=== PATIENT | male | born 1975 | race Caucasian/White ===

== ENCOUNTER 2017-07-24 11:59 | Emergency (ER) | payer SELFPAY ==
[~2017-07-24] VITALS: Ht 177.8 cm; Wt 80.0 kg
[2017-07-24 14:02] LABS: BASOPHILS % 1.2 % (0.0-2.0); EOSINOPHILS % 5.3 % (0.0-5.0); HEMATOCRIT. 36.5 % (42.0-52.0); HEMOGLOBIN. 11.7 g/dL (14.0-18.0); LYMPHOCYTES % 15.2 % (20.0-50.0); MEAN CORPUSCULAR VOLUME 93.3 fL (80.0-94.0); MEAN PLATELET VOLUME 7.8 fl (7.4-10.4); NEUTROPHILS % 64.3 % (40.0-76.0); PLATELET 282 x1000/uL (130-400); RED BLOOD CELL COUNT 3.91 mill/uL (4.7-6.1); RED CELL DISTRIBUTION WIDTH 16.1 % (11.6-14.6)
[2017-07-24 14:35] VITALS: BP 114/68
== END 2017-07-24 14:36 | disposition home or self-care (01) ==
LOC: ER 13:03
DX: R55 Syncope and collapse (principal); I13.0 Hypertensive heart and chronic kidney disease with heart failure and stage 1 through stage 4 chronic kidney disease, or unspecified chronic kidney disease; E11.22 Type 2 diabetes mellitus with diabetic chronic kidney disease; N18.4 Chronic kidney disease, stage 4 (severe); I50.9 Heart failure, unspecified; R53.1 Weakness
CPT/HCPCS: 36415; 80048; 85025; 99284

== ENCOUNTER 2017-09-07 13:02 | Inpatient (IN) | payer MEDICARE, MEDICAID ==
[~2017-09-07] VITALS: Ht 177.8 cm; Wt 81.6 kg
[2017-09-07] VITALS (33 sets, daily range): BP systolic 64–142; BP diastolic 42–74
[~2017-09-07 13:02] MED LIST: HEPARIN SODIUM 1,000 UNIT/1ML VIAL IV ONE; NICARDIPINE 100MCG/ML 10ML VIAL (CATH LAB) IV ONE; NITROGLYCERIN 50MCG/ML 10ML VIAL (CATH LAB) IV ONE; PHENYLEPHRINE 100MCG/ML 10ML VIAL (CATH LAB) IV ONE
[2017-09-07] MEDS ORDERED: SODIUM CHLORIDE 0.9% 1,000 ML IV ONE (13:19)
[2017-09-07] MEDS ORDERED: ONDANSETRON HCL 4MG/2ML VIAL IV STA (13:19)
[2017-09-07] MEDS ORDERED: MORPHINE SULFATE 4 MG/ML CPJ (NOT FOR IM USE) IV STA (13:19)
[2017-09-07] MEDS ORDERED: ASPIRIN 81MG TABLET PO STA (13:19)
[2017-09-07] MEDS ORDERED: IODIXANOL 320MG/ML 100 ML BOTTLE IV ONE ×2 (13:44→14:46)
[2017-09-07] MEDS ORDERED: LIDOCAINE HCL 1% 20ML VIAL (Pyxis) INJ ONE ×2 (13:44→14:32)
[2017-09-07 13:53] LABS: BASOPHILS % 0.5 % (0.0-2.0); EOSINOPHILS % 1.6 % (0.0-5.0); HEMATOCRIT. 32.2 % (42.0-52.0); HEMOGLOBIN. 10.5 g/dL (14.0-18.0); LYMPHOCYTES % 12.4 % (20.0-50.0); MEAN CORPUSCULAR HEMOGLOBIN 29.6 pg (28.0-32.0); MEAN CORPUSCULAR VOLUME 90.5 fL (80.0-94.0); MEAN PLATELET VOLUME 8.4 fl (7.4-10.4); MONOCYTES % 9.1 % (2.0-8.0); NEUTROPHILS % 76.4 % (40.0-76.0); PLATELET 248 x1000/uL (130-400); RED BLOOD CELL COUNT 3.56 mill/uL (4.7-6.1); RED CELL DISTRIBUTION WIDTH 15.1 % (11.6-14.6)
[2017-09-07 14:01] LABS: PARTIAL THROMBOPLASTIN TIME 30.1 sec (23.4-31.0); PROTHROMBIN TIME 10.7 sec (9.4-11.6)
[2017-09-07] MEDS ORDERED: IOVERSOL 240MG/ML 100ML BOTTLE IV ONE (14:09)
[2017-09-07] MEDS ORDERED: DOPAMINE 400MG PREMIX 250 ML IV ONE (14:10)
[2017-09-07 14:14] LABS: CHLORIDE 98 mEq/L (98-107)
[2017-09-07] MEDS ORDERED: ATROPINE SULFATE 1MG/10ML SYR IV PRN (15:30)
[2017-09-07] MEDS ORDERED: ACETAMINOPHEN 325MG TABLET PO PRN (15:30)
[2017-09-07] MEDS ORDERED: ASPIRIN 325MG TABLET ONE (15:39)
[2017-09-07] MEDS ORDERED: CLOPIDOGREL 75MG TABLET ONE (15:40)
[2017-09-07] MEDS: PHENYLEPHRINE 10 MG in DEXTROSE 5% WATER 250 ML IV PRN (16:30)
[2017-09-07] MEDS ORDERED: DEXTROSE 50% WATER 50ML SYRINGE IV PRN (17:00)
[2017-09-07] MEDS ORDERED: MORPHINE SULFATE 2 MG/ML CPJ (NOT FOR IM USE) IV ONE (17:28)
[2017-09-07] MEDS ORDERED: HEPARIN 25,000 UNITS PREMIX 500 ML IV SCH (17:30)
[2017-09-07] MEDS ORDERED: HEPARIN BOLUS PRN aPTT 30-44 IV (17:30)
[2017-09-07] MEDS ORDERED: HEPARIN BOLUS PRN aPTT <30 IV (17:30)
[2017-09-07] MEDS ORDERED: MORPHINE SULFATE 2 MG/ML CPJ (NOT FOR IM USE) IV SCH ×2 (18:30)
[2017-09-07] MEDS: ONDANSETRON HCL 4MG/2ML VIAL IV PRN (19:49)
[2017-09-07] MEDS: MORPHINE SULFATE 4 MG/ML CPJ (NOT FOR IM USE) IV PRN (20:36)
[2017-09-07] MEDS: INSULIN LISPRO 100 UNITS/ML SUBCUT SCH ×2 (20:49→21:00)
[2017-09-07] MEDS: BLOOD SUGAR DIAGNOSTIC STRIP TEST SCH ×2 (20:49→21:06)
[2017-09-07] MEDS: ATORVASTATIN CALCIUM 40MG TABLET PO SCH (21:00)
[2017-09-07] MEDS: MORPHINE SULFATE 2 MG/ML CPJ (NOT FOR IM USE) IV PRN (21:29)
[2017-09-07] MEDS: HYDROMORPHONE HCL/PF 2MG/ML CPJ IV PRN (21:50)
[2017-09-07] MEDS: DIPHENHYDRAMINE 50MG/ML VIAL IV PRN (21:50)
[2017-09-08] VITALS (75 sets, daily range): BP systolic 47–142; BP diastolic 31–93
[2017-09-08] MEDS: PHENYLEPHRINE 10 MG in DEXTROSE 5% WATER 250 ML IV PRN (00:46)
[2017-09-08] MEDS: MORPHINE SULFATE 4 MG/ML CPJ (NOT FOR IM USE) IV PRN ×2 (00:46→04:26)
[2017-09-08] MEDS: HYDROMORPHONE HCL/PF 2MG/ML CPJ IV PRN ×3 (02:21→06:49)
[2017-09-08] MEDS: MORPHINE SULFATE 2 MG/ML CPJ (NOT FOR IM USE) IV PRN (03:35)
[2017-09-08] MEDS: DIPHENHYDRAMINE 50MG/ML VIAL IV PRN (03:36)
[2017-09-08] MEDS ORDERED: DIPHENHYDRAMINE 50MG/ML VIAL IV SCH (04:45)
[2017-09-08 05:46] LABS: BASOPHILS % 0.6 % (0.0-2.0); EOSINOPHILS % 1.2 % (0.0-5.0); HEMATOCRIT. 31.4 % (42.0-52.0); HEMOGLOBIN. 10.3 g/dL (14.0-18.0); LYMPHOCYTES % 11.4 % (20.0-50.0); MEAN CORPUSCULAR HEMOGLOBIN 29.8 pg (28.0-32.0); MEAN CORPUSCULAR VOLUME 90.6 fL (80.0-94.0); MEAN PLATELET VOLUME 8.2 fl (7.4-10.4); MONOCYTES % 9.5 % (2.0-8.0); NEUTROPHILS % 77.3 % (40.0-76.0); PLATELET 252 x1000/uL (130-400); RED BLOOD CELL COUNT 3.47 mill/uL (4.7-6.1); RED CELL DISTRIBUTION WIDTH 15.1 % (11.6-14.6)
[2017-09-08 05:57] LABS: INR 1.1; PROTHROMBIN TIME 11.2 sec (9.4-11.6)
[2017-09-08] MEDS ORDERED: LORAZEPAM 2MG/ML CPJ IV SCH (06:15)
[2017-09-08] MEDS: BLOOD SUGAR DIAGNOSTIC STRIP TEST SCH ×4 (07:52→21:40)
[2017-09-08] MEDS: INSULIN LISPRO 100 UNITS/ML SUBCUT SCH ×4 (07:56→21:00)
[2017-09-08] MEDS: ONDANSETRON HCL 4MG/2ML VIAL IV PRN (08:29)
[2017-09-08] MEDS: LORAZEPAM 2MG/ML CPJ IV PRN (11:43)
[2017-09-08] MEDS: ASPIRIN 81MG EC TABLET PO SCH (12:46)
[2017-09-08] MEDS: QUETIAPINE FUMARATE 25MG TABLET PO SCH ×2 (12:46→21:38)
[2017-09-08] MEDS ORDERED: IPRATROPIUM/ALBUTEROL 0.5-3(2.5)MG/3ML NEB HHN PRN (13:00)
[2017-09-08] MEDS: CLOPIDOGREL 75MG TABLET PO SCH (13:15)
[2017-09-08] MEDS: ATORVASTATIN CALCIUM 40MG TABLET PO SCH (21:00)
[2017-09-09] VITALS (43 sets, daily range): BP systolic 67–98; BP diastolic 33–71
[2017-09-09 06:21] LABS: BASOPHILS % 0.7 % (0.0-2.0); EOSINOPHILS % 1.5 % (0.0-5.0); HEMATOCRIT. 29.4 % (42.0-52.0); HEMOGLOBIN. 9.8 g/dL (14.0-18.0); LYMPHOCYTES % 13.8 % (20.0-50.0); MEAN CORPUSCULAR HEMOGLOBIN 30.3 pg (28.0-32.0); MEAN PLATELET VOLUME 8.4 fl (7.4-10.4); MONOCYTES % 9.9 % (2.0-8.0); NEUTROPHILS % 74.1 % (40.0-76.0); PLATELET 202 x1000/uL (130-400); RED BLOOD CELL COUNT 3.23 mill/uL (4.7-6.1); RED CELL DISTRIBUTION WIDTH 14.8 % (11.6-14.6)
[2017-09-09] MEDS: BLOOD SUGAR DIAGNOSTIC STRIP TEST SCH ×4 (07:50→20:15)
[2017-09-09] MEDS: INSULIN LISPRO 100 UNITS/ML SUBCUT SCH ×4 (08:20→20:15)
[2017-09-09] MEDS ORDERED: SODIUM CHLORIDE 0.9% 200 ML IV SCH ×2 (09:00→11:15)
[2017-09-09] MEDS: CLOPIDOGREL 75MG TABLET PO SCH (09:10)
[2017-09-09] MEDS: ASPIRIN 81MG EC TABLET PO SCH (09:10)
[2017-09-09] MEDS: QUETIAPINE FUMARATE 25MG TABLET PO SCH (09:11)
[2017-09-09] MEDS: ATORVASTATIN CALCIUM 40MG TABLET PO SCH (20:08)
[2017-09-09] MEDS: ASCORBIC ACID 250 MG TABLET PO SCH (20:22)
[2017-09-09] MEDS: LORAZEPAM 2MG/ML CPJ IV PRN (20:23)
[2017-09-10] VITALS (32 sets, daily range): BP systolic 81–105; BP diastolic 25–72
[2017-09-10 06:57] LABS: BASOPHILS % 0.6 % (0.0-2.0); EOSINOPHILS % 2.6 % (0.0-5.0); HEMATOCRIT. 28.8 % (42.0-52.0); HEMOGLOBIN. 9.5 g/dL (14.0-18.0); LYMPHOCYTES % 14.1 % (20.0-50.0); MEAN PLATELET VOLUME 8.3 fl (7.4-10.4); MONOCYTES % 10.3 % (2.0-8.0); NEUTROPHILS % 72.4 % (40.0-76.0); PLATELET 213 x1000/uL (130-400); RED BLOOD CELL COUNT 3.17 mill/uL (4.7-6.1); RED CELL DISTRIBUTION WIDTH 15.1 % (11.6-14.6)
[2017-09-10] MEDS: INSULIN LISPRO 100 UNITS/ML SUBCUT SCH ×4 (08:20→20:06)
[2017-09-10] MEDS: BLOOD SUGAR DIAGNOSTIC STRIP TEST SCH ×4 (08:25→20:06)
[2017-09-10] MEDS: ASCORBIC ACID 250 MG TABLET PO SCH ×2 (08:54→19:44)
[2017-09-10] MEDS: FOLIC ACID/VITAMIN B COMP W-C TABLET PO SCH (08:54)
[2017-09-10] MEDS: ASPIRIN 81MG EC TABLET PO SCH (08:54)
[2017-09-10] MEDS: ZINC SULFATE 220 MG ( 50 ) CAPSULE PO SCH (08:54)
[2017-09-10] MEDS: CLOPIDOGREL 75MG TABLET PO SCH (08:54)
[2017-09-10] MEDS: ATORVASTATIN CALCIUM 40MG TABLET PO SCH (19:44)
[2017-09-10] MEDS: LORAZEPAM 2MG/ML CPJ IV PRN (19:44)
[2017-09-11] VITALS (46 sets, daily range): BP systolic 64–123; BP diastolic 16–73
[2017-09-11 05:41] LABS: EOSINOPHILS % 3.6 % (0.0-5.0); HEMATOCRIT. 27.4 % (42.0-52.0); HEMOGLOBIN. 9.1 g/dL (14.0-18.0); LYMPHOCYTES % 23.5 % (20.0-50.0); MEAN CORPUSCULAR HEMOGLOBIN 30.1 pg (28.0-32.0); MEAN CORPUSCULAR VOLUME 90.4 fL (80.0-94.0); MEAN PLATELET VOLUME 8.2 fl (7.4-10.4); MONOCYTES % 11.2 % (2.0-8.0); NEUTROPHILS % 60.7 % (40.0-76.0); PLATELET 211 x1000/uL (130-400); RED BLOOD CELL COUNT 3.04 mill/uL (4.7-6.1); RED CELL DISTRIBUTION WIDTH 14.9 % (11.6-14.6)
[2017-09-11] MEDS: BLOOD SUGAR DIAGNOSTIC STRIP TEST SCH ×4 (07:38→20:52)
[2017-09-11] MEDS: INSULIN LISPRO 100 UNITS/ML SUBCUT SCH ×4 (07:38→20:55)
[2017-09-11] MEDS: ZINC SULFATE 220 MG ( 50 ) CAPSULE PO SCH (08:52)
[2017-09-11] MEDS: ASCORBIC ACID 250 MG TABLET PO SCH ×2 (08:53→20:48)
[2017-09-11] MEDS: ASPIRIN 81MG EC TABLET PO SCH (08:53)
[2017-09-11] MEDS: FOLIC ACID/VITAMIN B COMP W-C TABLET PO SCH (08:53)
[2017-09-11] MEDS: CLOPIDOGREL 75MG TABLET PO SCH (08:53)
[2017-09-11] MEDS: LORAZEPAM 2MG/ML CPJ IV PRN ×2 (13:43→20:48)
[2017-09-11] MEDS: ATORVASTATIN CALCIUM 40MG TABLET PO SCH ×2 (20:48→21:00)
[2017-09-12] VITALS (45 sets, daily range): BP systolic 71–126; BP diastolic 31–78
[2017-09-12 04:50] LABS: BASOPHILS % 1.2 % (0.0-2.0); HEMATOCRIT. 28.5 % (42.0-52.0); HEMOGLOBIN. 9.3 g/dL (14.0-18.0); LYMPHOCYTES % 22.7 % (20.0-50.0); MEAN CORPUSCULAR HEMOGLOBIN 29.4 pg (28.0-32.0); MEAN CORPUSCULAR VOLUME 90.3 fL (80.0-94.0); MEAN PLATELET VOLUME 7.9 fl (7.4-10.4); MONOCYTES % 10.4 % (2.0-8.0); NEUTROPHILS % 60.7 % (40.0-76.0); PLATELET 224 x1000/uL (130-400); RED BLOOD CELL COUNT 3.16 mill/uL (4.7-6.1); RED CELL DISTRIBUTION WIDTH 14.8 % (11.6-14.6)
[2017-09-12] MEDS: LORAZEPAM 2MG/ML CPJ IV PRN ×3 (06:39→20:37)
[2017-09-12] MEDS: BLOOD SUGAR DIAGNOSTIC STRIP TEST SCH ×4 (07:50→20:41)
[2017-09-12] MEDS: INSULIN LISPRO 100 UNITS/ML SUBCUT SCH ×4 (08:20→20:43)
[2017-09-12] MEDS: ZINC SULFATE 220 MG ( 50 ) CAPSULE PO SCH (09:02)
[2017-09-12] MEDS: ASCORBIC ACID 250 MG TABLET PO SCH ×2 (09:02→20:37)
[2017-09-12] MEDS: FOLIC ACID/VITAMIN B COMP W-C TABLET PO SCH (09:02)
[2017-09-12] MEDS: CLOPIDOGREL 75MG TABLET PO SCH (09:02)
[2017-09-12] MEDS: ASPIRIN 81MG EC TABLET PO SCH (09:02)
[2017-09-12] MEDS: ATORVASTATIN CALCIUM 40MG TABLET PO SCH (20:42)
[2017-09-13] VITALS (16 sets, daily range): BP systolic 80–156; BP diastolic 35–74
[2017-09-13] MEDS: LORAZEPAM 2MG/ML CPJ IV PRN ×3 (00:27→11:00)
[2017-09-13] MEDS: INSULIN LISPRO 100 UNITS/ML SUBCUT SCH ×3 (08:00→17:54)
[2017-09-13] MEDS: BLOOD SUGAR DIAGNOSTIC STRIP TEST SCH ×3 (08:15→17:50)
[2017-09-13] MEDS: ASPIRIN 81MG EC TABLET PO SCH (08:24)
[2017-09-13] MEDS: ZINC SULFATE 220 MG ( 50 ) CAPSULE PO SCH (08:24)
[2017-09-13] MEDS: ASCORBIC ACID 250 MG TABLET PO SCH (08:24)
[2017-09-13] MEDS: CLOPIDOGREL 75MG TABLET PO SCH (08:24)
[2017-09-13] MEDS: FOLIC ACID/VITAMIN B COMP W-C TABLET PO SCH (08:24)
[2017-09-13] MEDS ORDERED: MIDO10TA PO (09:29)
[2017-09-13] MEDS ORDERED: RANI300T4 PO (09:29)
[2017-09-13] MEDS ORDERED: ERGO500013 PO (09:29)
[2017-09-13] MEDS ORDERED: CLOP75TA16 PO (09:29)
[2017-09-13] MEDS ORDERED: HYDR-4094 PO (09:29)
[2017-09-13] MEDS ORDERED: SEVE800T8 PO (09:29)
[2017-09-13 09:34] LABS: BASOPHILS % 1.4 % (0.0-2.0); EOSINOPHILS % 3.1 % (0.0-5.0); HEMATOCRIT. 28.7 % (42.0-52.0); HEMOGLOBIN. 9.6 g/dL (14.0-18.0); LYMPHOCYTES % 15.3 % (20.0-50.0); MEAN CORPUSCULAR HEMOGLOBIN 30.1 pg (28.0-32.0); MEAN CORPUSCULAR VOLUME 90.2 fL (80.0-94.0); MEAN PLATELET VOLUME 7.9 fl (7.4-10.4); MONOCYTES % 8.4 % (2.0-8.0); NEUTROPHILS % 71.8 % (40.0-76.0); PLATELET 247 x1000/uL (130-400); RED BLOOD CELL COUNT 3.18 mill/uL (4.7-6.1); RED CELL DISTRIBUTION WIDTH 14.6 % (11.6-14.6)
[2017-09-13 10:10] LABS: TROPONIN I 3.5 ng/mL (0.00-0.04)
[2017-09-13] MEDS ORDERED: INSASP SUBCUT (17:58)
== END 2017-09-13 23:42 | disposition home or self-care (01) | DRG 270 ==
LOC: ER 13:02 → CVICU 13:57 → EDBEDREQ 14:02 → 5EST 09-13 03:23
PROVIDERS: ADMIT Internal Medicine Nephrology; ATTEND Internal Medicine Nephrology
PROC: 5A02210 Assistance with Cardiac Output using Balloon Pump, Continuous (ICD-10-PCS; principal; 2017-09-07)
PROC: 4A023N7 Measurement of Cardiac Sampling and Pressure, Left Heart, Percutaneous Approach (ICD-10-PCS; 2017-09-07)
PROC: 027236Z Dilation of Coronary Artery, Three Arteries with Three Drug-eluting Intraluminal Devices, Percutaneous Approach (ICD-10-PCS; 2017-09-07)
PROC: B2111ZZ Fluoroscopy of Multiple Coronary Arteries using Low Osmolar Contrast (ICD-10-PCS; 2017-09-07)
PROC: 3E1M39Z Irrigation of Peritoneal Cavity using Dialysate, Percutaneous Approach (ICD-10-PCS; 2017-09-07)
DX: T82.855A Stenosis of coronary artery stent, initial encounter (principal); I21.19 ST elevation (STEMI) myocardial infarction involving other coronary artery of inferior wall; J96.00 Acute respiratory failure, unspecified whether with hypoxia or hypercapnia; E43 Unspecified severe protein-calorie malnutrition; R57.0 Cardiogenic shock; N18.6 End stage renal disease; I13.11 Hypertensive heart and chronic kidney disease without heart failure, with stage 5 chronic kidney disease, or end stage renal disease; J98.11 Atelectasis; E11.22 Type 2 diabetes mellitus with diabetic chronic kidney disease; E11.51 Type 2 diabetes mellitus with diabetic peripheral angiopathy without gangrene; D64.9 Anemia, unspecified; D72.829 Elevated white blood cell count, unspecified; E78.5 Hyperlipidemia, unspecified; F17.210 Nicotine dependence, cigarettes, uncomplicated; I25.10 Atherosclerotic heart disease of native coronary artery without angina pectoris; I25.5 Ischemic cardiomyopathy; D63.8 Anemia in other chronic diseases classified elsewhere; Y83.1 Surgical operation with implant of artificial internal device as the cause of abnormal reaction of the patient, or of later complication, without mention of misadventure at the time of the procedure; Y92.89 Other specified places as the place of occurrence of the external cause; Z79.02 Long term (current) use of antithrombotics/antiplatelets; Z79.82 Long term (current) use of aspirin; Z99.2 Dependence on renal dialysis; Z95.810 Presence of automatic (implantable) cardiac defibrillator; Z82.49 Family history of ischemic heart disease and other diseases of the circulatory system; Z83.3 Family history of diabetes mellitus; Z68.25 Body mass index [BMI] 25.0-25.9, adult; I25.2 Old myocardial infarction
CPT/HCPCS: 33967; 36415; 71045; 76770; 80048; 80053; 82962; 83735; 83880; 84484; 85025; 85347; 85610; 85730; 87040; 87070; 87205; 92928; 93005; 93306; 93458; 97116; 97162; 97535; 99291; C1713; C1725; C1769; C1887; C1893; J1170; J1200; J1265; J1644; J1815; J2060; J2270; J2370; J2405; J3490; J7030; J7040; J7050; J7060; J7620; Q9967